=== PATIENT | male | born 1930 | race Caucasian/White ===

== ENCOUNTER 2019-01-29 08:52 | Outpatient (CLI) | payer OTHER | END 2019-01-29 23:59 | disposition home or self-care (01) | LOC: PETCFH 08:52 | PROVIDERS: ATTEND Nurse Practitioner | DX: R91.8 Other nonspecific abnormal finding of lung field (principal); K44.9 Diaphragmatic hernia without obstruction or gangrene | CPT/HCPCS: 78815; A9552 ==